=== PATIENT | female | born 1965 | race Caucasian/White ===

== ENCOUNTER → 2017-01-17 | Outpatient (CLI) | payer OTHER ==
[2016-06-04 14:42] VITALS: BP 124/84
[~2017-01-17] MED LIST: ALPR2TAB2 PO; CYCL10TA2 PO; HYDR-2762 PO; NAPR500T PO; OXYC-244 PO; [UNRECOGNIZED DRUG - OTHER] PO
--- NOTE | 2017-01-17 10:27 | KCIC ---
Exam: Abdomen ultrasound Indication:Reason For Study Reason: RUQ PAIN N/V/D / Spl. Instructions: / History: Technique: Multiple realtime grayscale sonographic images were obtained over the abdomen. Static images were submitted for interpretation. Findings: Pancreas is poorly visualized The IVC is patent. The aorta is normal in caliber. The liver is normal in size measuring 13.8 cm. There is a normal hepatic echotexture. No focal lesions are identified. Gallbladder is nondistended. There is no gallbladder wall thickening or cholelithiasis. No pericholecystic fluid. There is however gallbladder wall dilatation which measures 7.5 millimeters in diameter. The Right kidney is normal in size measuring 11 point by 5.5 x 5.5 cm. There is no evidence for mass, nephrolithiasis, or hydronephrosis. No ascites is identified. Impression: - There is dilatation of the common bile duct no dilatation of the gallbladder or cholelithiasis. No intrahepatic bile duct dilatation Electronically signed by: Cleve Ellis (Jan 17, 2017 10:26:05)
== END | disposition home or self-care (01) ==
LOC: KCIC US 09:23
PROVIDERS: ATTEND Physician Assistant Medical
DX: R10.11 Right upper quadrant pain (principal); R11.2 Nausea with vomiting, unspecified; R19.7 Diarrhea, unspecified
CPT/HCPCS: 76705

== ENCOUNTER → 2017-01-18 | Outpatient (CLI) | payer OTHER ==
[2016-06-04 14:42] VITALS: BP 124/84
[~2017-01-18] VITALS: Ht 165.1 cm; Wt 154.2 kg
[~2017-01-18] MED LIST changes: +NORMAL SALINE IV ONE; +SINCALIDE IV ONE
--- NOTE | 2017-01-18 13:35 | RAD ---
Indication: Epigastric pain for one week with abnormal ultrasound. Technique: Hepatobiliary scintigraphy utilized 5.5 mCi technetium 99m labeled Choletec IV. 3.08 mcg of IV CCK was administered and gallbladder ejection fraction then calculated. Findings: There is prompt uptake of radiotracer by the hepatic parenchyma. Gallbladder is visualized by 15 minutes. Bowel activity is noted. Gallbladder ejection fraction is calculated at 93.6%. Impression: Normal hepatobiliary scintigraphy with normal gallbladder ejection fraction.
== END | disposition home or self-care (01) ==
LOC: NM 09:59
PROVIDERS: ATTEND Nurse Practitioner Family
DX: R93.2 Abnormal findings on diagnostic imaging of liver and biliary tract (principal); R10.13 Epigastric pain
CPT/HCPCS: 78226; 96374; A9537; J2805